=== PATIENT | male | born 1995 | race Caucasian/White ===

== ENCOUNTER 2017-10-11 21:36 | Emergency (ER) | payer OTHER, MEDICAID, SELFPAY ==
[2017-10-11 21:30] VITALS: BP 141/81; PULSE 111; RESP 18; TEMP 36.9; O2SAT 100
--- NOTE | 2017-10-11 21:46 | PC.NURSE ---
Unable to fully examine. Placed in seclusion w/ locked door r/t potential threat to staff as patient was acting aggressively to staff members. Verbal order obtained from Dr. Pineda to place in seclusion. Pt continued to scream through door.
[2017-10-11 22:38] VITALS: BP 151/80; PULSE 122; RESP 20; O2SAT 100
[2017-10-11] MEDS: KETAMINE 500 MG/10 ML INJ 400 MG IM (22:39)
--- NOTE | 2017-10-11 22:39 | PC.NURSE ---
Pt continued to try to break glass w/ chair, attempting to throw stretcher. Repeat call to [employer] who arrived on scene. Discussed w/ doctor- ketamine order obtained. [employer] restrained on floor, ketamine administered. After pt calmed, got into bed by himself. Vital signs stable. Easy work of breathing. Security at door. Door open. Pt continues to verbalize. Protects own airway.
[2017-10-11 22:43] VITALS: BP 141/82; PULSE 112; RESP 18; O2SAT 98
--- NOTE | 2017-10-11 22:45 | PC.NURSE ---
at this time, pt does not allow cardiac monitoring. Spitting at staff. pulling at wires.
--- NOTE | 2017-10-11 22:48 | PC.NURSE ---
see nursing notes. Unable to open door r/t violent behavior (throwing chair against glass)
--- NOTE | 2017-10-11 22:49 | PC.NURSE ---
Continues to verbalize obsenities and threats toward staff. No longer attempint go get out of bed or damage surroundings. Door open. Security sitting at door. Attempting to decrease stimulation.
[2017-10-11 23:00] VITALS: BP 129/72; PULSE 112; RESP 20; O2SAT 94
[2017-10-11 23:21] VITALS: BP 121/62; PULSE 112; RESP 20; O2SAT 95
[2017-10-11 23:27] LABS: Add Manual Diff / Slide Review NO; Basophils Percent Auto 1.1 % (0-2); Eosinophils Percent Auto 1.5 % (2-4); Hematocrit 43.8 % (41-53); Hemoglobin 15.5 g/dL (13.5-17.5); Lymphocytes Percent Auto 32.3 % (25-40); Mean Corpuscular HGB Conc 35.4 % (30-36); Mean Corpuscular Hemoglobin 32.2 PG (26-34); Monocytes Percent Auto 6.3 % (3-14); Neutrophils Absolute Auto 5300 /uL (3000-5900); Neutrophils Percent Auto 58.8 % (50-75); Platelet Count 416 X10^3/uL (150-400); Red Blood Cell Count 4.81 X10^6/uL (4.5-5.9); Red Cell Distribution Width 12.9 % (11.6-14.8); White Blood Cell Count 9.1 X10^3/uL (4.5-11.0)
[2017-10-11 23:30] VITALS: BP 128/72; PULSE 104; RESP 24; O2SAT 98
--- NOTE | 2017-10-11 23:31 | PC.NURSE ---
Arousable to general stimulus. Easy work of breathing. Door open, call cervantes in place. Skin is pink /warm and dry. Falls to sleep if not stimulated.
[2017-10-11 23:38] LABS: BUN Creatinine Ratio 22.2 (6-22); Blood Urea Nitrogen 20 mg/dL (9-20); Calcium 8.8 mg/dL (8.4-10.2); Carbon Dioxide 25 mmol/L (22-32); Chloride 104 mmol/L (98-107); Estimated Glomerular Filt Rate > 60.0 mL/min (>60); Ethanol (ETOH) 293 mg/dL; Glucose 124 mg/dL (70-100); HEMOLYSIS 23 (0-50); Potassium 3.4 mmol/L (3.4-5.1); Sodium 147 mmol/L (137-145)
[2017-10-12 00:07] VITALS: BP 130/51; PULSE 106; RESP 22; O2SAT 99
[2017-10-12 00:47] VITALS: BP 141/81; PULSE 100; RESP 14; O2SAT 99
--- NOTE | 2017-10-12 00:48 | PC.NURSE ---
Pt woke up, a/o x 3. Able to walk in strait line. Easy work of breathing. More cooperative. Denies SI/HI.
--- NOTE | 2017-10-12 00:50 | ED.ALCOHOL ---
HPI - Alcohol General Chief Complaint: Toxicology Problem Stated Complaint: Behavioral History of Present Illness HPI narrative: HPI 22-year-old male presents slurring speech, stumbling, belligerent, and intermittently hostile/with violence verbal outbursts in police custody for medical evaluation after he was found to be stumbling and having difficulty walking in the setting of an afternoon of heavy drinking. Patient denies trauma, notes that he was drinking today, states that he wishes to go home. ROS with no recent constitutional symptoms. Exam Gen: intermittently redirectable, frequent verbally violent outbursts, pounding on chisholm infrequently, redirectable during the history and exam, slurring speech. Smells of alcohol. HEENT: NC, AT, PEERL, EOMI. Resp: Unlabored respirations with a normal work of breathing. Card: Extremities warm and well perfused. GI: Non-distended. : Deferred MSK: No visible deformities, strength and tone without visually appreciable deficit. Neuro: alert and oriented to self, aware of location with prompting, knows home address, struggles to describe how to get home, no facial asymmetry, vision and hearing WNL. Patient with markedly unsteady gait, falls multiple times in attempting to ambulate. Has moments of steady gait before losing his balance. Heme/Lymph: Deferred Skin: Normal color with no visible lesions (other than noted above). Psych: agitated, confused, does not appear to have the capacity in understanding simple conversation regarding risks and benefits.. MDM Previous chart, nursing note, and vitals reviewed. A: 22-year-old male presents slurring speech, stumbling, belligerent, and intermittently hostile/with violence verbal outbursts in police custody for medical evaluation after he was found to be stumbling and having difficulty walking in the setting of an afternoon of heavy drinking. DDx & Evaluation: history and exam notable for a clinically observed toxidrome consistent with the stated history of heavy alcohol consumption. Significant concern exists for risk to self as patient is unable to be able to walk across a room with a modicum of stability, patient frequently falling, unclear if patient can safely make it home. While the patient is protecting his airway and has some degree of orientation he lacks capacity. Patient with a suspected alcohol intoxication to the degree of overdose/high risk for self-harm. In the absence of redirectability in a safe discharge plan the patient presently represents undue risk to self due to his intoxication with significant [employer] impairment. Patient with escalating agitation, unsteady gait, absence of identifiable capacity. Patient seclusion ordered due to high risk for self-harm. Unable to redirect or de-escalate patient (multiple nurses and physician on independent tabs as well as law enforcement). Requested risk management on 3 occasions, unable to obtain. Due to significant concern for alcohol poisoning with high risk of self-harm due to loss of capacity and severe gait impairment it was felt to be in the patient's best interests to restrained chemically to allow for metabolization of his toxidrome. Police contacted for assistance, law enforcement unable to provide a safe observation environment for the patient's alcohol intoxication. 400 mg IM ketamine ordered. Subsequent labs were consistent with the patient's known toxidrome, there is significant for mild hypernatremia suggestive of dehydration, elevated blood alcohol level of 293, were otherwise within acceptable limits. Upon clearance of the ketamine the patient metabolize sufficient alcohol to be able to walk with a steady gait and was no longer displaying agitation, high-risk behaviors are self-harm, and had capacity. The patient was alert, oriented, and adequately sober to be able to make informed decision and was discharged. Impression: EtOH intoxication (please reference below for remainder of encounter information) Related Data Home Medications Medication Instructions Recorded Confirmed No Known Home Medications 10/11/17 10/11/17 Allergies Allergy/AdvReac Type Severity Reaction Status Date / Time No Known Drug Allergies Allergy Verified 10/11/17 23:38 [facility] Social History Smoking Status: Unknown if ever smoked Exam Initial Vital Signs Initial Vital Signs: Vital Signs Temperature 98.4 F 10/11/17 21:30 Pulse Rate 111 H 10/11/17 21:30 Respiratory Rate 18 10/11/17 21:30 Blood Pressure 141/81 H 10/11/17 21:30 Pulse Oximetry 100 10/11/17 21:30 Course Orders Ordered: ED Orders 10/11/17 23:20 Basic Metabolic Panel Stat Complete Blood Count AUTO DIFF Stat Ethanol (ETOH) Stat Discontinued Medications Ketamine HCl (Ketalar) 400 mg IM NOW ONE Stop: 10/11/17 22:33 Last Admin: 10/11/17 22:39 Dose: 400 mg Vital Signs - 8 hr 10/11/17 21:30 10/11/17 22:38 10/11/17 22:43 Temperature 98.4 F Pulse Rate 111 H 122 H 112 H Respiratory Rate 18 20 18 Blood Pressure 141/81 H Blood Pressure [Left Arm] 151/80 H 141/82 H Pulse Oximetry 100 100 98 10/11/17 23:00 10/11/17 23:21 10/11/17 23:30 Temperature Pulse Rate 112 H 112 H 104 H Respiratory Rate 20 20 24 Blood Pressure Blood Pressure [Left Arm] 129/72 H 121/62 H 128/72 H Pulse Oximetry 94 95 98 10/12/17 00:07 10/12/17 00:47 Temperature Pulse Rate 106 H 100 H Respiratory Rate 22 14 Blood Pressure Blood Pressure [Left Arm] 130/51 H 141/81 H Pulse Oximetry 99 99 MDM - Alcohol Lab Data Result diagrams: 10/11/17 23:20 10/11/17 23:20 Labs: Lab Results 10/11/17 10/11/17 Range/Units 23:20 23:20 WBC 9.1 (4.5-11.0) X10^3/uL RBC 4.81 (4.5-5.9) X10^6/uL Hgb 15.5 (13.5-17.5) g/dL Hct 43.8 (41-53) % MCV 91.0 (80-100) fL MCH 32.2 (26-34) PG MCHC 35.4 (30-36) % RDW 12.9 (11.6-14.8) % Plt Count 416 H (150-400) X10^3/uL Neut % (Auto) 58.8 (50-75) % Lymph % (Auto) 32.3 (25-40) % Tama % (Auto) 6.3 (3-14) % Eos % (Auto) 1.5 L (2-4) % Baso % (Auto) 1.1 (0-2) % Neut # (Auto) 5300 (8002-0869) /uL Sodium 147 H (137-145) mmol/L Potassium 3.4 (3.4-5.1) mmol/L Chloride 104 (98-107) mmol/L Carbon Dioxide 25 (22-32) mmol/L BUN 20 (9-20) mg/dL Creatinine 0.90 (0.66-1.25) mg/dL Estimated GFR > 60.0 (>60) mL/min BUN/Creatinine Ratio 22.2 H (6-22) Glucose 124 H (70-100) mg/dL Calcium 8.8 (8.4-10.2) mg/dL Ethyl Alcohol 293 mg/dL Discharge Plan Departure Patient Disposition: Home, Self-Care Clinical Impression: Alcoholic intoxication Activity Restrictions/Additional Instructions: You were in seen in the [facility] Emergency Department for evaluation of alcohol intoxication. Your highly intoxicated and a high risk for yourself. Please do not drink alcohol. Please read and follow all of the instructions below. Please follow up with your primary care physician-2 days. If you have any new symptoms or if you are at all concerned about your health please return immediately to the emergency department. If you do not have a primary care physician, please contact [facility] [place], [facility] at [phone], [facility] at [phone], or [facility] at [phone] to arrange follow up care. If you have health insurance, please also contact your insurer for a list of accepting providers under your policy, you may contact these providers for further health care. Your care today was limited to identifying and treating emergent medical problems only. Many people have subtle differences in their test results that require follow up with their outpatient physician(s) to correctly determine if this represents a normal variation or concerning abnormality with respect to your specific health. The care given to you today was limited to identifying and treating emergent medical problems - you need to request a copy of all of your medical records from today's visit and follow up with your outpatient physician(s) to review both today's visit and your overall health. Prescriptions: No Action No Known Home Medications RF: 0
--- NOTE | 2017-10-12 00:56 | PC.NURSE ---
door open after ketamin administered.
== END 2017-10-12 00:55 | disposition home or self-care (01) ==
PROVIDERS: Emergency Provider Emergency Medicine
DX: F10.929 Alcohol use, unspecified with intoxication, unspecified (principal)
CPT/HCPCS: 36415; 80048; 80320; 85025; 96372; 99284

== ENCOUNTER 2017-10-24 23:09 | Emergency (ER) | payer OTHER, MEDICAID, SELFPAY ==
[2017-10-24 23:11] VITALS: BP 109/62; PULSE 92; RESP 18; TEMP 36.7; O2SAT 96
--- NOTE | 2017-10-25 04:05 | ED_ITS ---
HPI - Medical Clearance General Chief complaint: Medical Clearance Stated complaint: fit for correction,pt c/o TB and Pulmonary Edema to [employer] Time Seen by Provider: 10/24/17 23:15 Source: patient and police Mode of arrival: ambulatory Limitations: no limitations History of Present Illness HPI Narrative: 22-year-old in the custody of police brought to the emergency department for evaluation alcohol intoxication prior to incarceration. Patient has no complaints Home Medications Medication Instructions Recorded Confirmed No Known Home Medications 10/11/17 10/11/17 Allergies Allergy/AdvReac Type Severity Reaction Status Date / Time No Known Drug Allergies Allergy Verified 10/11/17 23:38 Review of Systems Review of Systems All systems reviewed & are unremarkable except as noted in HPI and below Constitutional Denies chills, Denies fever(s), Denies lethargy and Denies weakness Eyes Denies change in vision, Denies eye discharge, Denies irritation and Denies loss of vision ENT Ears, Nose, Mouth, and Throat: Denies change in voice, Denies neck pain and Denies sore throat Cardiovascular Denies chest pain, Denies irregular heart rhythm, Denies lightheadedness, Denies palpitations, Denies dyspnea, Denies dyspnea on exertion and Denies orthopnea Respiratory Denies cough, Denies dyspnea, Denies dyspnea on exertion and Denies wheezing Gastrointestinal Gastrointestinal: Denies abdominal pain, Denies change in bowel habits, Denies diarrhea, Denies nausea and Denies vomiting Genitourinary Denies hematuria, Denies flank pain, Denies urinary incontinence and Denies urinary urgency Musculoskeletal Denies neck pain Integumentary/Breasts Denies pruritus, Denies erythema, Denies rash and Denies wounds Neurologic Denies confusion, Denies loss of vision and Denies weakness Psychiatric Denies anxiety, Denies confusion, Denies depression, Denies homicidal ideation and Denies suicidal ideation Endocrine Denies palpitations Hematologic/Lymphatic Denies easy bruising Allergic/Immunologic Denies wheezing PFSH Social History Smoking Status: Unknown if ever smoked Exam Narrative Exam Narrative: GEN: AOx3 and in mild distress EYES: Pupils are equal, round, and reactive to light and accommodation. Extraoccular muscles are intact bilaterally. There is no subconjunctival hemorrhage or exudate. CHEST: Lungs are clear to auscultation bilaterally and free of wheezes, rales, or rhonchi. Heart rate is regular rhythm, there are no murmurs, clicks, rubs, or gallops. There is no chest wall tenderness. ABD: Abdomen is soft and nontender. There is no guarding or rebound. Bowel sounds are normal in all 4 quadrants. There is no mass or organomegaly. EXT: Full painless ROM of all extremities with no loss of sensation or strength. SKIN: Warm, pink, and dry. No erythema or rash Initial Vital Signs Initial Vital Signs: Vital Signs Temperature 98.0 F 10/24/17 23:11 Pulse Rate 92 H 10/24/17 23:11 Respiratory Rate 18 10/24/17 23:11 Blood Pressure 109/62 10/24/17 23:11 Pulse Oximetry 96 10/24/17 23:11 Course Last Vital Signs Temp 98.0 F 10/24/17 23:11 Pulse 92 H 10/24/17 23:11 Resp 18 10/24/17 23:11 BP 109/62 10/24/17 23:11 Pulse Ox 96 10/24/17 23:11 Discharge Plan Departure Patient Disposition: Home, Self-Care Clinical Impression: Alcoholic intoxication, Medical clearance for incarceration Discharge Date/Time: 10/24/17 23:20 Interventions: ED Discharge Assessment Last Done: 10/24/17 23:20 Prescriptions: No Action No Known Home Medications RF: 0
== END 2017-10-24 23:20 | disposition home or self-care (01) ==
LOC: ED 23:35
PROVIDERS: Emergency Provider Emergency Medicine
DX: F10.929 Alcohol use, unspecified with intoxication, unspecified (principal); Z00.8 Encounter for other general examination
CPT/HCPCS: 99282; 99283